=== PATIENT | female | born 1995 | race Caucasian/White ===

== ENCOUNTER 2019-04-28 20:48 | Emergency (ER) | payer SELFPAY ==
[~2019-04-28] VITALS: Ht 162.6 cm; Wt 55.3 kg
[2019-04-28 21:08] VITALS: BP_SYST 121
== END 2019-04-28 21:40 | disposition left against medical advice (07) ==
LOC: SED 20:48
DX: M25.561 Pain in right knee (principal); Z53.21 Procedure and treatment not carried out due to patient leaving prior to being seen by health care provider